=== PATIENT | female | born 2000 | race Caucasian/White ===

== ENCOUNTER 2021-06-15 23:15 | Emergency (ER) | payer BC ==
[~2021-06-15] VITALS: Ht 154.9 cm; Wt 42.2 kg
[2021-06-15 23:37] VITALS: BP 146/97
--- NOTE | 2021-06-15 23:42 | NUR ---
PATIENT SENT TO LOBBY
--- NOTE | 2021-06-15 23:57 | NUR ---
PT RETURN FROM RADIOLOGY
--- NOTE | 2021-06-16 01:07 | NUR ---
SNOW ARGUELLES SPEAKING WITH PATIENT ABOUT RESULTS. JES WRAP WILL BE PLACED ON THE LEFT WRIST.
[2021-06-16 01:13] VITALS: BP 146/97
--- NOTE | 2021-06-16 01:13 | NUR ---
Patient discharged with v/s stable. Written and verbal after care instructions given and explained. Patient verbalized understanding. Ambulatory with steady gait. All questions addressed prior to discharge. Advised to follow up with PMD.
== END 2021-06-16 01:13 | disposition home or self-care (01) ==
LOC: MED 23:15
DX: S60.212A Contusion of left wrist, initial encounter (principal); V00.131A Fall from skateboard, initial encounter; Y93.89 Activity, other specified; Y92.89 Other specified places as the place of occurrence of the external cause; Y99.8 Other external cause status
CPT/HCPCS: 73110; 99283